=== PATIENT | female | born 1995 | race Caucasian/White ===

== ENCOUNTER 2025-07-14 08:38 | Day surgery (SDC) | payer BC ==
[2025-07-10 14:51] VITALS: BMI 32.3
[2025-07-10 15:01] LABS: Hematocrit 40.6 % (34.9-44.5); Hemoglobin 13.4 g/dL (12.0-15.5); Mean Corpuscular Hemoglobin 29.5 pg (27.0-33.0); Mean Corpuscular Volume 89.4 fL (81.6-98.3); Platelet Count 457 10x3/uL (150-450); Red Blood Cell (RBC) Count 4.54 10x6/uL (3.90-5.03); White Blood Cell (WBC) Count 9.50 10x3/uL (3.5-10.5)
[2025-07-10 15:44] LABS: BHCG - Serum Negative (NEGATIVE); Pregs Control Background? CLEAR/WHITE (CLR/WHITE); Pregs Control Bar Appear? YES (CONTROL BAR)
[2025-07-14] MEDS ORDERED: Gabapentin 300 MG CAP ONE (08:47)
[2025-07-14] MEDS ORDERED: Famotidine/PF 20 mg/2ml Vial ONE (08:48)
[2025-07-14] MEDS ORDERED: metroNIDAZOLE 500 MG (100 mL) BAG ONE (08:48)
[2025-07-14] MEDS ORDERED: Bupivacaine HCl 0.5%/Epinephrine 1:200,000/PF 30 ml Vial ONE (09:31)
[2025-07-14] MEDS ORDERED: Rocuronium Bromide 10 MG/ML (10ML VIAL) ONE (10:24)
[2025-07-14] MEDS ORDERED: Lidocaine 1% PF 5 ML VIAL ONE (10:24)
[2025-07-14] MEDS ORDERED: PROPOFOL 40 ML ONE (10:24)
[2025-07-14] MEDS ORDERED: Ondansetron PF 4 MG/2 ML Vial ONE ×2 (10:24→12:47)
[2025-07-14] MEDS ORDERED: SUGAMMADEX SODIUM 200 MG/2 ML VIAL ONE ×2 (10:24→12:29)
[2025-07-14] MEDS ORDERED: CEFAZOLIN 2 GM VIAL ONE (10:29)
[2025-07-14] MEDS ORDERED: PHENYLEPHRINE-NS 100 MCG/ML 10 ML SYRINGE ONE (10:54)
[2025-07-14] MEDS ORDERED: HYDROmorphone 0.5 MG/0.5 ML SYRINGE ONE (13:12)
[2025-07-14] MEDS ORDERED: HYDROcodone/Acetaminophen 5/325 mg Tablet ONE (14:02)
== END 2025-07-14 14:47 | disposition home or self-care (01) ==
LOC: CSHSDC 08:38
PROVIDERS: ATTEND Obstetrics & Gynecology
PROC: 0UT74ZZ Resection of Bilateral Fallopian Tubes, Percutaneous Endoscopic Approach (ICD-10-PCS; principal; 2025-07-14)
PROC: 0UT24ZZ Resection of Bilateral Ovaries, Percutaneous Endoscopic Approach (ICD-10-PCS; principal; 2025-07-14)
PROC: 0UT94ZZ Resection of Uterus, Percutaneous Endoscopic Approach (ICD-10-PCS; principal; 2025-07-14)
DX: D25.1 Intramural leiomyoma of uterus (principal); N80.03 Adenomyosis of the uterus; N73.6 Female pelvic peritoneal adhesions (postinfective); N32.89 Other specified disorders of bladder; K66.0 Peritoneal adhesions (postprocedural) (postinfection); E03.9 Hypothyroidism, unspecified; F32.A Depression, unspecified; F41.9 Anxiety disorder, unspecified; Z87.59 Personal history of other complications of pregnancy, childbirth and the puerperium; Z88.8 Allergy status to other drugs, medicaments and biological substances; Z79.890 Hormone replacement therapy; Z79.899 Other long term (current) drug therapy
CPT/HCPCS: 84703; 85027; 86850; 86900; 86901; 88307; C9250-JZ; J1100; J1171; J1308; J2250; J2405; J2704; J3010; Q9968; S2900